=== PATIENT | male | born 1970 | race Hispanic/Latino ===

== ENCOUNTER 2023-08-23 21:22 | Emergency (ER) | payer SELFPAY ==
[2023-08-23 22:08] LABS: Absolute Eosinophils 0.1 K/uL (0-0.5); Absolute Lymphocytes (CBC) 3.1 K/uL (0.7-4.9); Absolute Neutrophil 5.5 K/uL (1.8-8.0); Basophils % 0.5 % (0-1.3); Eosinophils % 1.3 % (0-4.4); Hematocrit 39.3 % (39.6-49.0); Hemoglobin 13.9 g/dL (13.6-17.9); Lymphocytes % 31.6 % (15.3-44.8); MCH 31.1 pg (27.0-35.0); MCHC 35.4 g/dL (32.0-36.0); MCV 87.9 fL (80-100); MPV 7.5 fL (7.6-11.3); Monocytes % 10.1 % (3.3-12.3); Neutrophils % 56.5 % (41.7-73.7); Nucleated Red Blood Cells % 0.1 % (0-0); Platelets 280 thou/uL (152-406); RBC Red Blood Cell Count 4.47 M/uL (4.33-5.43); Red Cell Distribution Width 12.4 % (12.1-15.2)
[2023-08-23] MEDS ORDERED: NA CHLORIDE 0.9% 1,000 ML ONE (22:12)
[2023-08-23 22:26] LABS: Albumin 3.5 g/dL (3.4-5.0); Albumin/Globulin Ratio 0.8 (1.1-1.8); Anion Gap 12.2 mEq/L (5.0-15.0); Bilirubin Total 0.4 mg/dL (0.2-1.0); Globulin 4.4 g/dL (2.3-3.5); Potassium 3.2 mEq/L (3.5-5.1); Protein, Total 7.9 g/dL (6.4-8.2)
--- NOTE | 2023-08-23 23:59 | EDPHYS ---
Physician Documentation [facility] Name: Steffany Butler Age: 53 yrs Sex: Male : 1970 Arrival Date: 08/23/2023 Time: 21:22 Bed 19 Private MD: ED Physician Kristofer Cesar HPI: 08/23 00:00 This 53 yrs old Male presents to ER via Ambulatory with complaints of Vomiting.kb 00:00 Patient is a 53-year-old male who presents for vomiting that occurred just prior to kb arrival. States he ate dinner then took a shower and started vomiting in the shower. Denies abdominal pain, nausea at this time. Also reports laceration that occurred at work 2 weeks ago to left wrist that is still not healed and noticed drainage from it 1 week ago. Denies fever. Historical: - Allergies: 08/22 21:31 No Known Allergies; tl4 - PMHx: 21:31 Diabetes mellitus; Hypertensive disorder; Hypercholesterolemia; tl4 - Immunization history:: Adult Immunizations unknown. - Infectious Disease History:: Denies. - Social history:: Smoking status: Patient denies any tobacco usage or history of. ROS: 23:58 Constitutional: As per HPI kb Exam: 23:58 Constitutional: This is a well developed, well nourished patient who is awake, alert, kb and in no acute distress. Head/Face: Normocephalic, atraumatic. ENT: Moist Mucous membranes Cardiovascular: Regular rate Respiratory: Respirations even and unlabored. No increased work of breathing. Talking in full sentences Abdomen/GI: Soft, non-tender. No distention MS/ Extremity: Pulses equal, no cyanosis. Neurovascular intact. Full, normal range of motion. Neuro: Awake and alert, GCS 15, oriented to person, place, time, and situation. Moves all extremities. Normal gait. 23:58 Skin: laceration to left wrist with mild erythema and drainage. Vital Signs: 21:29 BP 132 / 81; Pulse 90; Resp 16; Temp 98.7(O); Pulse Ox 99% on R/A; Weight 68.04 kg; tl4 Height 5 ft. 6 in. ; Pain 0/10; 08/23 00:10 BP 127 / 84; Pulse 84; Resp 17 S; Temp 98.1; Pulse Ox 98% on R/A; lg3 08/22 21:29 Body Mass Index 24.21 (68.04 kg, 167.64 cm) tl4 08/22 21:29 Pain Scale: Adult tl4 MDM: 08/22 21:26 Patient medically screened. henry 23:58 Data reviewed: vital signs, nurses notes. kb 08/23 00:00 Differential diagnosis: Nonspecific abd pain, gastritis, pancreatitis. Historians other kb than the Patient: Daughter/Son: daughter. Counseling: I had a detailed discussion with the patient and/or guardian regarding the historical points, exam findings, and any diagnostic results supporting the discharge/admit diagnosis, lab results, radiology results, the need for outpatient follow up, a family practitioner, to return to the emergency department if symptoms worsen or persist or if there are any questions or concerns that arise at home. 08/22 21:35 Order name: CBC with Diff; Complete Time: 22:10 kb 08/22 21:35 Order name: CMP; Complete Time: 22:37 kb 08/22 21:35 Order name: Lipase; Complete Time: 22:37 kb 08/22 21:35 Order name: Wound Culture 08/22 22:37 Order name: CT Abd/Pelvis - IV Contrast Only 08/22 21:35 Order name: IV Saline Lock; Complete Time: 22:02 kb 08/22 21:35 Order name: Labs collected and sent; Complete Time: 22:02 kb Administered Medications: 08/22 22:24 Drug: NS 0.9% IV 1000 ml IV at 1 bolus Per protocol; 1000 mL bolus Route: IV; Rate: 1 cm10 bolus; Site: right forearm; 08/23 00:11 Follow up: Response: No adverse reaction; IV Status: Completed infusion; IV Intake: lg3 1000ml 08/22 23:06 CANCELLED (Physician Discretion): ns 0.9% 1000 ml IV at 1000 ml once cm10 08/23 00:10 Drug: Potassium Chloride PO 40 mEq PO once Route: PO; lg3 00:10 Follow up: Response: No adverse reaction lg3 00:10 Drug: Cephalexin PO 500 mg PO once Route: PO; lg3 00:10 Follow up: Response: No adverse reaction lg3 Disposition Summary: 08/23/23 23:59 Discharge Ordered Notes: Location: Home Condition: Stable kb Diagnosis - Local infection of the skin and subcutaneous tissue, unspecified kb - Vomiting kb Followup: kb - With: Emergency Department - When: As needed - Reason: Worsening of condition Followup: kb - With: Private Physician - When: 2 - 3 days - Reason: Recheck today's complaints, Continuance of care, Re-evaluation by your physician Discharge Instructions: - Discharge Summary Sheet kb - Nausea and Vomiting, Adult, [id number] kb - Wound Infection, [id number] kb Forms: - Medication Reconciliation Form kb - Antibiotic Education kb - Prescription Opioid Use kb - Patient Portal Instructions kb - Leadership Thank You Letter kb Prescriptions: - mupirocin 2 % Topical ointment - apply 1 application TOPICAL route 3 times per day; 1 unit; Refills: 0, Product kb Selection Permitted - Cephalexin 500 mg Oral Capsule - take 1 capsule ORAL route every 8 hours for 10 days; 30 capsule; Refills: 0, kb Product Selection Permitted Addendum: 08/27/2023 21:59 Co-signature as Attending Physician, Kristofer Cesar MD I agree with the assessment and c pabon plan of care. Signatures: Dispatcher [employer] EDYara Silva, NBA PLAYER-C NBA PLAYER-Ckb Kristofer Cesar MD MD cha Able, Lacie RN RN lg3 Silvana Castro, RN RN cm10 Ye Jackson RN RN tl4 Corrections: (The following items were deleted from the chart) 08/22 21:35 21:35 CBC+H.LAB.BRZ ordered. EDMS EDMS 21:35 21:35 COMPREHENSIVE METABOLIC PANEL+C.LAB.BRZ ordered. EDMS EDMS 21:35 21:35 LIPASE+C.LAB.BRZ ordered. EDMS EDMS 21:35 21:35 Wound Culture+BA.LAB.BRZ ordered. EDMS EDMS 23:06 22:37 NS 0.9% IV 1000 ml IV at 1000 ml once ordered. kb cm10
--- NOTE | 2023-08-23 23:59 | ER ---
Nurse's Notes [facility] Name: Steffany Butler Age: 53 yrs Sex: Male : 1970 Arrival Date: 08/23/2023 Time: 21:22 Bed 19 Private MD: Diagnosis: Local infection of the skin and subcutaneous tissue, unspecified;Vomiting Presentation: 08/22 21:29 Chief complaint: Patient states: Pt had episode of vomiting in shower approx 30 min tl4 ago. Pt also complains of infected wound to left wrist. Coronavirus screen: At this time, the client does not indicate any symptoms associated with coronavirus-19. Ebola Screen: No symptoms or risks identified at this time. Initial Sepsis Screen: Does the patient meet any 2 criteria? No. Patient's initial sepsis screen is negative. Does the patient have a suspected source of infection? No. Patient's initial sepsis screen is negative. Risk Assessment: Do you want to hurt yourself or someone else? Patient reports no desire to harm self or others. Onset of symptoms was August 23, 2023 at 21:00. 21:29 Method Of Arrival: Ambulatory tl4 21:29 Acuity: XENIA 4 tl4 23:02 Acuity: XENIA 3 cm10 Triage Assessment: 21:33 General: Appears in no apparent distress. Behavior is calm, cooperative. Pain: Denies tl4 pain. EENT: No signs and/or symptoms were reported regarding the EENT system. Neuro: Level of Consciousness is awake, alert, obeys commands, Oriented to person, place, time, situation, Moves all extremities. Full function Gait is steady, Speech is normal. Cardiovascular: Capillary refill < 3 seconds Patient's skin is warm and dry. Respiratory: Airway is patent Respiratory effort is even, unlabored, Respiratory pattern is regular, symmetrical, Breath sounds are clear bilaterally. GI: Reports vomiting. : No signs and/or symptoms were reported regarding the genitourinary system. Derm: Wound noted left arm. Musculoskeletal: No signs and/or symptoms reported regarding the musculoskeletal system. Historical: - Allergies: 21:31 No Known Allergies; tl4 - PMHx: 21:31 Diabetes mellitus; Hypertensive disorder; Hypercholesterolemia; tl4 - Immunization history:: Adult Immunizations unknown. - Infectious Disease History:: Denies. - Social history:: Smoking status: Patient denies any tobacco usage or history of. Screenin:03 [facility] ED Fall Risk Assessment (Adult) History of falling in the last 3 months, tl4 including since admission No falls in past 3 months (0 pts) Confusion or Disorientation No (0 pts) Intoxicated or Sedated No (0 pts) Impaired Gait No (0 pts) Mobility Assist Device Used No (0 pt) Altered Elimination No (0 pt) Score/Fall Risk Level 0 - 2 = Low Risk Oriented to surroundings, Maintained a safe environment, Educated pt \T\ family on fall prevention, incl call for assistance when getting out of bed, Assessed \T\ reinforced patient's understanding of fall precautions. Abuse screen: Denies threats or abuse. Denies injuries from another. Nutritional screening: No deficits noted. Tuberculosis screening: No symptoms or risk factors identified. Assessment: 22:21 Reassessment: No changes from previously documented assessment. Patient and/or family tl4 updated on plan of care and expected duration. Pain level reassessed. Patient is alert, oriented x 3, equal unlabored respirations, skin warm/dry/pink. GI: Reports vomiting. 08/23 00:10 Reassessment: Patient appears in no apparent distress at this time. Patient and/or lg3 family updated on plan of care and expected duration. Pain level reassessed. Patient is alert, oriented x 3, equal unlabored respirations, skin warm/dry/pink. Patient is alert/active/playful, equal unlabored respirations, skin warm/dry/pink. Patient states feeling better. Patient states symptoms have improved. Vital Signs: 08/22 21:29 BP 132 / 81; Pulse 90; Resp 16; Temp 98.7(O); Pulse Ox 99% on R/A; Weight 68.04 kg; tl4 Height 5 ft. 6 in. ; Pain 0/10; 08/23 00:10 BP 127 / 84; Pulse 84; Resp 17 S; Temp 98.1; Pulse Ox 98% on R/A; lg3 08/22 21:29 Body Mass Index 24.21 (68.04 kg, 167.64 cm) tl4 08/22 21:29 Pain Scale: Adult tl4 ED Course: 08/22 21:25 Patient arrived in ED. im 21: Yara Glynn FNP-C is PHCP. kb 21: Kristofer Cesar MD is Attending Physician. kb 21:31 Triage completed. tl4 21:34 Arm band placed on right wrist. tl4 21:50 Wound Culture Sent. tl4 22:02 CBC with Diff Sent. tl4 22:02 CMP Sent. tl4 22:02 Lipase Sent. tl4 22:02 No provider procedures requiring assistance completed. Initial lab(s) drawn, by me, tl4 sent to lab. Wound culture swab sent to lab. Inserted saline lock: 22 gauge in right forearm, using aseptic technique. Blood collected. 22:03 Patient has correct armband on for positive identification. Bed in low position. Call tl4 light in reach. Side rails up X 1. Adult w/ patient. Provided Education on: ED process. Client placed on continuous cardiac and pulse oximetry monitoring. NIBP monitoring applied. Door closed. Noise minimized. Lights dimmed. Moved to private room. 23:00 CT Abd/Pelvis - IV Contrast Only In Process Unspecified. EDMS 08/23 00:11 IV discontinued, intact, bleeding controlled, No redness/swelling at site. Pressure lg3 dressing applied. Administered Medications: 08/22 22:24 Drug: NS 0.9% IV 1000 ml IV at 1 bolus Per protocol; 1000 mL bolus Route: IV; Rate: 1 cm10 bolus; Site: right forearm; 08/23 00:11 Follow up: Response: No adverse reaction; IV Status: Completed infusion; IV Intake: lg3 1000ml 08/22 23:06 CANCELLED (Physician Discretion): ns 0.9% 1000 ml IV at 1000 ml once cm10 08/23 00:10 Drug: Potassium Chloride PO 40 mEq PO once Route: PO; lg3 00:10 Follow up: Response: No adverse reaction lg3 00:10 Drug: Cephalexin PO 500 mg PO once Route: PO; lg3 00:10 Follow up: Response: No adverse reaction lg3 Medication: 08/22 22:03 VIS not applicable for this client. tl4 Intake: 08/23 00:11 IV: 1000ml; Total: 1000ml. lg3 Outcome: 08/22 23:59 Discharge ordered by . nina 08/23 00:11 Discharged to home ambulatory, with family, lg3 Condition: stable Discharge instructions given to patient, Instructed on discharge instructions, follow up and referral plans. medication usage, Demonstrated understanding of instructions, follow-up care, medications, Prescriptions given X 2, 00:12 Patient left the ED. lg3 Addendum: 08/27/2023 15:01 Addendum: Culture Results: Positive wound culture. Phone call Attempt #1 this nurse a p3 attempted to call patient, however patient hung up on nurse mid phone call. Signatures: Dispatcher [employer] EDCT Yara Glynn, FITTINGS TIGHTENER-C FITTINGS TIGHTENER-Yoli Brown RN RN ap3 Gauri Ocampo RN RN lg3 Lisa Villagran Clarissa, RN RN cm10 Ye Jackson RN RN tl4 Corrections: (The following items were deleted from the chart) 08/22 21:33 21:29 Chief complaint: Patient states: Pt had episode of vomiting in shower approx 30 tl4 min ago. Pt denies any complaints at this time tl4
[2023-08-24] MEDS ORDERED: CEPHALEXIN 250 MG CAP ONE (00:03)
[2023-08-24] MEDS ORDERED: POTASSIUM CL SA 10 MEQ TAB PO ONE (00:04)
[2023-08-24 01:12] VITALS: BP 127/84; TEMP 98.1; O2SAT 98
--- NOTE | 2023-08-25 11:11 | RAD REPORT ---
EXAM DESCRIPTION: Abdomen Pelvis W Contrast CLINICAL HISTORY: ABD PAIN COMPARISON: CT ABDOMEN PELVIS 11/27/2017. TECHNIQUE: Contiguous axial images of the abdomen and pelvis were obtained after the administration o f intravenous contrast followed by reconstruction images.This exam was performed according to our [facility] dose-optimization program, which includes automated exposure control, adjustment of the mA and/or kV according to patient size and/or use of iterative reconstruction technique. FINDINGS: Stomach is distended with presumed food material. The liver, spleen, pancreas and kidneys are within normal limits. There is no hydronephrosis or renal stones. The gallbladder is unremarkable by CT criteria. Adrenal glands are within normal limits. Aor ta is of normal caliber and tapering. There is no free fluid in the abdomen or pelvis. There is no terell wel obstruction. There is no stranding of the mesenteric fat to suggest an inflammatory response. The re is an appendicolith within the distal appendix. There is no dilatation or stranding of the adjacen t fat to suggest acute appendicitis by CT criteria.. There is no pericecal inflammation. IMPRESSION: No acute intra-abdominal abnormality. Electronically signed by: Wesley Hernandez MD 08/23/2023 11:19 PM CDT Due to temporary technical issues with the PACS/Fluency reporting system, reports are being signed by the in house radiologists without review as a courtesy to insure prompt reporting. The interpreting radiologist is fully responsible for the content of the report.
== END 2023-08-24 00:12 | disposition home or self-care (01) ==
LOC: ER 21:22
DX: R11.10 Vomiting, unspecified (principal); L08.9 Local infection of the skin and subcutaneous tissue, unspecified
CPT/HCPCS: 36415; 74177; 80053; 83690; 85025; 87070; 87077; 87186; 87205; 96360; 96361; 99284; J7030; Q9967